=== PATIENT | female | born 1995 | race Caucasian/White ===

== ENCOUNTER 2017-12-25 11:12 | Emergency (ER) | payer SELFPAY ==
[~2017-12-25] VITALS: Ht 160 cm; Wt 54.4 kg
--- OUTSIDE RECORDS SUMMARY | 2017-12-25 11:28 | XMS REPORT | Continuity of Care Document ---
Demographics Preferred Language Unknown Marital Status Unknown Hinduism Affiliation Unknown Race Unknown Ethnic Group Unknown Author Author [facility] Address Unknown Phone Unavailable Allergies There is no data. Medications There is no data. Problems Date Dx Coded Attending Type Code Diagnosis Diagnosed By 12/07/2011 463 TONSILLITIS ACUTE 12/07/2011 466.0 BRONCHITIS, ACUTE Procedures There is no data. Results There is no data. Encounters ACCT No. Visit Date/Time Discharge Status Pt. Type Provider Facility Loc./Unit Complaint [id number] 08/19/2012 07:46:00 Document Registration
--- NOTE | 2017-12-25 12:00 | ED GU-Female ---
General Chief Complaint: Abdominal/GI Problems Stated Complaint: OVARIAN MASS/CRAMPS Nursing Triage Note: pt presents to ed with complaints of l lower abdominal pain the radiates to r side. pt reports she was seen in [place] ED three days ago for "ovarian mass" but told to just take tylenol and follow up with her primary dr. Nursing Sepsis Screen: No Definite Risk Source: patient Exam Limitations: no limitations History of Present Illness Date Seen by Provider: December 25, 2017 Time Seen by Provider: 11:59 Initial Comments 22 yo female patient presents to the emergency department with complaints of left lower abdominal pain radiating to the right side for approximately one week. Patient was seen at the emergency department in [place] 3 days ago and found to have a "ovarian mass". Reports having labs, 2 CT's, pelvic exam, and pelvic cultures. She was told that she has a yeast infection. Patient states she did have an ultrasound of the abdomen and transvaginal ultrasound 2 days ago as an outpatient at , but does not know her results. Reports pain is worse today. Timing/Duration: getting worse Severity/Quality: cramping Location: LLQ Radiation: RLQ, suprapubic Activities at Onset: none Prior Genitourinary Problems: similar symptoms Sexual Moraida History: less than 2 months ago, single partner Modifying Factors: Worsens With Palpation, Worsens With Other (worse with standing) Allergies and Home Medications Allergies Coded Allergies: latex (Verified Allergy, Unknown, 11/07/12) Home Medications Naproxen Sodium 550 Mg Tablet, 550 MG PO BID PRN for pain Prescribed by: ONESIMO MILES on 12/25/17 1411 Patient Home Medication List Home Medication List Reviewed: Yes Review of Systems Constitutional: No chills, No fever, No malaise EENTM: no symptoms reported Respiratory: no symptoms reported Cardiovascular: no symptoms reported Gastrointestinal: see HPI, abdominal pain; No constipation, No diarrhea, No hematemesis; loss of appetite; No melena; nausea; No vomiting (did have 1 episode of emesis a couple of days ago, but none today.) Genitourinary: see HPI; denies burning; discharge (white discharge); denies dysuria, denies frequency, denies flank pain, denies hematuria; pain Musculoskeletal: No back pain Skin: no symptoms reported Psychiatric/Neurological: No Symptoms Reported All Other Systemes Reviewed Negative Unless Noted: Yes (Negative excepted noted.) Past Tjlnxgv-Hdxgeb-Cwuxvp Hx Patient Social History Alcohol Use: Denies Use Recreational Drug Use: No Smoking Status: Current Everyday Smoker Type Used: Cigarettes Recent Foreign Travel: No Contact w/Someone Who Travel: No Recent Infectious Disease Expo: No Physical Abuse: No Sexual Abuse: No Mistreated: No Fear: No Past Medical History Surgeries: No Respiratory: No Cardiac: No Neurological: No : No Hx : 1 Hx Para: 1 Hx Total # of Abortions (Sp): 0 Reproductive Disorders: Yes (h/o ovarian cysts) Female Reproductive Disorders: Ovarian Cyst Sexually Transmitted Disease: No Genitourinary: No Gastrointestinal: No Musculoskeletal: No Endocrine: No HEENT: No Cancer: No Psychosocial: No Nursing Suicide Risk Score: 0 Integumentary: No Blood Disorders: No Adverse Reaction/Blood Tranf: No Family Medical History Reviewed and Corrections made No Pertinent Family Hx Physical Exam Vital Signs Vital Signs - First Documented 12/25/17 11:32 Temp 98.2 Pulse 77 Resp 20 B/P (MAP) 104/76 (85) Pulse Ox 98 Capillary Refill : Less Than 3 Seconds General Appearance: WD/WN, no apparent distress, thin Neck: supple, normal inspection Cardiovascular: normal peripheral pulses, regular rate, rhythm, no edema, no murmur Respiratory: lungs clear, normal breath sounds, no respiratory distress, no accessory muscle use Gastrointestinal: normal bowel sounds, soft, no organomegaly; No distended; guarding (mild guarding LLQ); No rebound; tenderness (bilateral lower abdominal tenderness.) Back: normal inspection, no CVA tenderness Extremities: no pedal edema, normal capillary refill Neurologic/Psychiatric: alert, normal mood/affect, oriented x 3 Skin: normal color, warm/dry Progress/Results/Core Measures Suspected Sepsis Recent Fever Within 48 Hours: No Infection Criteria Present: None New/Unexplained Altered Menta: No Sepsis Screen: No Definite Risk SIRS Temperature:98.2 Pulse: 77 Respiratory Rate: 20 Laboratory Tests 12/25/17 12:30: White Blood Count 9.5 Blood Pressure 104 /76 Mean: 85 Laboratory Tests 12/25/17 12:30: Creatinine 0.77, Platelet Count 232, Total Bilirubin 0.4 Results/Orders Lab Results Laboratory Tests Test 12/25/17 12:25 12/25/17 12:30 Range/Units Urine Color YELLOW Urine Clarity CLEAR Urine pH 7 5-9 Urine Specific [place] 1.010 L 1.016-1.022 Urine Protein NEGATIVE NEGATIVE Urine Glucose (UA) NEGATIVE NEGATIVE Urine Ketones NEGATIVE NEGATIVE Urine Nitrite NEGATIVE NEGATIVE Urine Bilirubin NEGATIVE NEGATIVE Urine Urobilinogen NORMAL NORMAL MG/DL Urine Leukocyte Esterase 1+ H NEGATIVE Urine RBC (Auto) NEGATIVE NEGATIVE Urine RBC NONE /HPF Urine WBC 0-2 /HPF Urine Squamous Epithelial Cells 5-10 /HPF Urine Crystals NONE /LPF Urine Bacteria FEW H /HPF Urine Casts NONE /LPF Urine Mucus NEGATIVE /LPF Urine Culture Indicated NO Urine Opiates Screen NEGATIVE NEGATIVE Urine Oxycodone Screen NEGATIVE NEGATIVE Urine Methadone Screen NEGATIVE NEGATIVE Urine Propoxyphene Screen NEGATIVE NEGATIVE Urine Barbiturates Screen NEGATIVE NEGATIVE Ur Tricyclic Antidepressants Screen NEGATIVE NEGATIVE Urine Phencyclidine Screen NEGATIVE NEGATIVE Urine Amphetamines Screen NEGATIVE NEGATIVE Urine Methamphetamines Screen NEGATIVE NEGATIVE Urine Benzodiazepines Screen NEGATIVE NEGATIVE Urine Cocaine Screen NEGATIVE NEGATIVE Urine Cannabinoids Screen POSITIVE H NEGATIVE White Blood Count 9.5 4.3-11.0 10^3/uL Red Blood Count 4.90 4.35-5.85 10^6/uL Hemoglobin 14.9 11.5-16.0 G/DL Hematocrit 43 35-52 % Mean Corpuscular Volume 87 80-99 FL Mean Corpuscular Hemoglobin 30 25-34 PG Mean Corpuscular Hemoglobin Concent 35 32-36 G/DL Red Cell Distribution Width 14.9 H 10.0-14.5 % Platelet Count 232 130-400 10^3/uL Mean Platelet Volume 10.3 7.4-10.4 FL Neutrophils (%) (Auto) 64 42-75 % Lymphocytes (%) (Auto) 27 12-44 % Monocytes (%) (Auto) 7 0-12 % Eosinophils (%) (Auto) 1 0-10 % Basophils (%) (Auto) 1 0-10 % Neutrophils # (Auto) 6.1 1.8-7.8 X 10^3 Lymphocytes # (Auto) 2.6 1.0-4.0 X 10^3 Monocytes # (Auto) 0.7 0.0-1.0 X 10^3 Eosinophils # (Auto) 0.1 0.0-0.3 10^3/uL Basophils # (Auto) 0.1 0.0-0.1 10^3/uL Sodium Level 139 135-145 MMOL/L Potassium Level 4.1 3.6-5.0 MMOL/L Chloride Level 111 H 98-107 MMOL/L Carbon Dioxide Level 21 21-32 MMOL/L Anion Gap 7 5-14 MMOL/L Blood Urea Nitrogen 10 7-18 MG/DL Creatinine 0.77 0.60-1.30 MG/DL Estimat Glomerular Filtration Rate > 60 BUN/Creatinine Ratio 13 Glucose Level 82 70-105 MG/DL Calcium Level 9.3 8.5-10.1 MG/DL Total Bilirubin 0.4 0.1-1.0 MG/DL Aspartate Amino Transf (AST/SGOT) 19 5-34 U/L Alanine Aminotransferase (ALT/SGPT) 11 0-55 U/L Alkaline Phosphatase 60 40-136 U/L C-Reactive Protein High Sensitivity 0.13 0.00-0.50 MG/DL Total Protein 8.0 6.4-8.2 GM/DL Albumin 4.6 H 3.2-4.5 GM/DL My Orders Orders - ONESIMO MILES Saline Lock/Iv-Start (12/25/17 12:17) Urine Bedside (12/25/17 12:17) Cbc With Automated Diff (12/25/17 12:17) Comprehensive Metabolic Panel (12/25/17 12:17) Hs C Reactive Protein (12/25/17 12:17) Drug Screen Stat (Urine) (12/25/17 12:17) Ua Culture If Indicated (12/25/17 12:17) Ondansetron Injection (Zofran Injectio (12/25/17 12:30) Ns Iv 1000 Ml (Sodium Chloride 0.9%) (12/25/17 12:17) Ketorolac Injection (Toradol Injection) (12/25/17 12:17) Us Non Ob Transvaginal [id number] (12/25/17 12:58) Medications Given in ED Current Medications Medications Dose Ordered Sig/Adriana Route Start Time Stop Time Status Last Admin Dose Admin Ondansetron HCl 4 mg ONCE ONCE IVP 12/25/17 12:30 12/25/17 12:31 DC 12/25/17 12:30 4 MG Sodium Chloride 1,000 ml @ 0 mls/hr Q0M ONCE IV 12/25/17 12:17 12/25/17 12:19 DC 12/25/17 12:31 0 MLS/HR Vital Signs/I&O 12/25/17 14:19 Pulse 64 Resp 18 B/P (MAP) 105/68 Pulse Ox 98 Capillary Refill : Less Than 3 Seconds Blood Pressure Mean: 85 Diagnostic Imaging Diagonstic Imaging: Ultrasound Plain Films/CT/US/NM/MRI: pelvis Comments US NON OB TRANSVAGINAL [id number] REASON FOR EXAM: Left pelvic pain. COMPARISON: None TECHNIQUE: Transvaginal sonogram was performed. FINDINGS: The uterus is anteverted and within normal limits in size. There are no focal uterine masses. The endometrial stripe measures 10 mm, with a small amount of endometrial fluid present. The cervix is visualized and is unremarkable. The left ovary measures 4.3 x 4.2 x 3.5 cm in size and demonstrates a cystic structure which measures 2.6 x 2.7 x 2.1 cm, with internal septations, which may represent a hemorrhagic cyst. The right ovary is not seen due to bowel gas. No significant free fluid is seen. IMPRESSION: 1. Normal appearance of uterus with minimal endometrial fluid. 2. Cystic structure on the left ovary measuring up to 2.7 cm in size, likely a hemorrhagic cyst. Dictated by: Dictated on workstation # [id number] Reviewed: Reviewed by Me (radiology report reviewed by me) Departure Communication (Admissions) 1222 release of medical info faxed to [facility]. ED staff notified. 1315 [facility] ED contacted. States "there is something on the fax machine. They will fax records as soon as possible. 1350 [facility] ED records received and reviewed. Patient was diagnosed with bacterial vaginosis, candidiasis vulvovaginitis and a left ovarian mass per records. 1400 all laboratory findings and diagnostic study findings discussed with the patient. Patient reports feeling better with medications given. We'll plan for discharge to home with follow-up as an outpatient with Dr. Vazquez and/or the registered nurse step down of her choice for recheck. Patient to return to the emergency department immediately for worsened symptoms or any other concerns. Impression Primary Impression: Hemorrhagic cyst of left ovary Additional Impressions: BV (bacterial vaginosis) Vulvovaginal candidiasis Disposition: 01 HOME, SELF-CARE Condition: Improved Departure-Patient Inst. Decision time for Depature: 14:08 Referrals: KWESI VAZQUEZ MD (PCP/Family) Primary Care Physician Patient Instructions: Ovarian Cyst (DC) Add. Discharge Instructions: All discharge instructions reviewed with patient and/or family. Voiced understanding. Medications as instructed. Continue the medications prescribed by the [facility] providers. [id number] Monistat as directed by the parking lot manager for the yeast infection. Follow-up with Dr. Roy or the registered nurse step down of your choice for recheck as an outpatient. They may repeat an outpatient ultrasound in 6-12 weeks to reevaluate the left ovary. Call Wednesday morning for an appointment time. Return to the emergency department for worsened pain, fever, vomiting, inability to urinate, or any other concerns. Scripts Naproxen Sodium (Anaprox Ds) 550 Mg Tablet 550 MG PO BID PRN for pain, #14 TAB 0 Refills Prov: ONESIMO MILES 12/25/17 Work/School Note: Local Medical Staff Listing, Work Release Form Date Seen in the Emergency Department: December 25, 2017 Return to Work: December 26, 2017 Restrictions: No Restrictions ONESIMO MILES December 25, 2017 12:00
[2017-12-25] MEDS ORDERED: NS IV 1000 ML 1,000 ML IV ONE (12:17)
[2017-12-25] MEDS ORDERED: KETOROLAC 30 MG/ML VIAL IVP STA (12:17)
[2017-12-25] MEDS ORDERED: ONDANSETRON 4 MG/2 ML (SDV) Z0FRAN IVP ONE (12:30)
[2017-12-25 12:36] LABS: BASOPHILS # (AUTO) 0.1 10^3/uL (0.0-0.1); BASOPHILS % (AUTO) 1 % (0-10); EOSINOPHILS # (AUTO) 0.1 10^3/uL (0.0-0.3); EOSINOPHILS % (AUTO) 1 % (0-10); HEMATOCRIT 43 % (35-52); HEMOGLOBIN 14.9 G/DL (11.5-16.0); LYMPHOCYTES # (AUTO) 2.6 X 10^3 (1.0-4.0); LYMPHOCYTES % (AUTO) 27 % (12-44); MEAN CORPUSCULAR HEMOGLOBIN 30 PG (25-34); MEAN CORPUSCULAR HGB CONC 35 G/DL (32-36); MEAN CORPUSCULAR VOLUME 87 FL (80-99); MEAN PLATELET VOLUME 10.3 FL (7.4-10.4); MONOCYTES # (AUTO) 0.7 X 10^3 (0.0-1.0); MONOCYTES % (AUTO) 7 % (0-12); NEUTROPHILS # (AUTO) 6.1 X 10^3 (1.8-7.8); NEUTROPHILS % (AUTO) 64 % (42-75); PLATELET COUNT 232 10^3/uL (130-400); RED CELL DISTRIBUTION WIDTH 14.9 % (10.0-14.5); WHITE BLOOD COUNT 9.5 10^3/uL (4.3-11.0)
[2017-12-25 12:36] LABS: BILIRUBIN,URINE NEGATIVE (NEGATIVE); CLARITY,URINE CLEAR; COLOR,URINE YELLOW; GLUCOSE, URINE (UA) NEGATIVE (NEGATIVE); KETONES,URINE NEGATIVE (NEGATIVE); LEUKOCYTE ESTERASE ,URINE 1+ (NEGATIVE); NITRITE,URINE NEGATIVE (NEGATIVE); PH,URINE 7 (5-9); PROTEIN,URINE NEGATIVE (NEGATIVE); UROBILINOGEN,URINE NORMAL (NORMAL)
[2017-12-25 12:45] LABS: BACTERIA,URINE FEW /HPF; WBC,URINE 0-2 /HPF
[2017-12-25 12:53] LABS: ALANINE AMINOTRANSFERASE 11 U/L (0-55); ALBUMIN 4.6 GM/DL (3.2-4.5); ALKALINE PHOSPHATASE 60 U/L (40-136); BILIRUBIN,TOTAL 0.4 MG/DL (0.1-1.0); BUN/CREATININE RATIO 13; CALCIUM 9.3 MG/DL (8.5-10.1); CARBON DIOXIDE 21 MMOL/L (21-32); CHLORIDE 111 MMOL/L (98-107); CREATININE SERUM 0.77 MG/DL (0.60-1.30); GFR ESTIMATED > 60; GLUCOSE 82 MG/DL (70-105); POTASSIUM 4.1 MMOL/L (3.6-5.0); SODIUM 139 MMOL/L (135-145)
[2017-12-25 12:54] LABS: AMPHETAMINE SCREEN, URINE NEGATIVE (NEGATIVE); BARBITURATE SCREEN URINE NEGATIVE (NEGATIVE); BENZODIAZEPINES SCREEN URINE NEGATIVE (NEGATIVE); CANNABINOID SCREEN, URINE POSITIVE (NEGATIVE); COCAINE SCREEN URINE NEGATIVE (NEGATIVE); METHADONE STAT NEGATIVE (NEGATIVE); METHAMPHETAMINE SCREEN URINE S NEGATIVE (NEGATIVE); OPIATE SCREEN URINE NEGATIVE (NEGATIVE); OXYCODONE STAT NEGATIVE (NEGATIVE); PROPOXYPHENE STAT NEGATIVE (NEGATIVE); TRICYCLIC ANTIDEPRESSANTS SCRE NEGATIVE (NEGATIVE)
--- NOTE | 2017-12-25 13:41 | Diagnostic Imaging Report ---
REASON FOR EXAM: Left pelvic pain. COMPARISON: None TECHNIQUE: Transvaginal sonogram was performed. FINDINGS: The uterus is anteverted and within normal limits in size. There are no focal uterine masses. The endometrial stripe measures 10 mm, with a small amount of endometrial fluid present. The cervix is visualized and is unremarkable. The left ovary measures 4.3 x 4.2 x 3.5 cm in size and demonstrates a cystic structure which measures 2.6 x 2.7 x 2.1 cm, with internal septations, which may represent a hemorrhagic cyst. The right ovary is not seen due to bowel gas. No significant free fluid is seen. IMPRESSION: 1. Normal appearance of uterus with minimal endometrial fluid. 2. Cystic structure on the left ovary measuring up to 2.7 cm in size, likely a hemorrhagic cyst. Dictated by: Dictated on workstation # [id number]
[2017-12-25] MEDS ORDERED: NAPR-1070 PO (14:11)
[2017-12-25 14:19] VITALS: BP 105/68
== END 2017-12-25 14:19 | disposition home or self-care (01) ==
LOC: EDUNIT# 11:12 → ER 11:14
DX: N83.202 Unspecified ovarian cyst, left side (principal); N76.0 Acute vaginitis; B96.89 Other specified bacterial agents as the cause of diseases classified elsewhere; B37.3 Candidiasis of vulva and vagina; F17.210 Nicotine dependence, cigarettes, uncomplicated; Z87.448 Personal history of other diseases of urinary system; Z91.040 Latex allergy status
CPT/HCPCS: 36415; 76830; 80053; 80306; 81000; 84703; 85025; 86141; 96361; 96374; 96375

== ENCOUNTER 2018-03-08 11:18 | Emergency (ER) | payer SELFPAY ==
[~2018-03-08] VITALS: Ht 160 cm; Wt 49.9 kg
[~2018-03-08 11:18] MED LIST: NAPR-1070 PO
--- OUTSIDE RECORDS SUMMARY | 2018-03-08 11:24 | XMS REPORT | Continuity of Care Document ---
Demographics Preferred Language Unknown Marital Status Unknown Scientologist Affiliation Unknown Race Unknown Ethnic Group Unknown Author Author [facility] Address Unknown Phone Unavailable Allergies There is no data. Medications There is no data. Problems Date Dx Coded Attending Type Code Diagnosis Diagnosed By 12/07/2011 463 TONSILLITIS ACUTE 12/07/2011 466.0 BRONCHITIS, ACUTE Procedures There is no data. Results There is no data. Encounters ACCT No. Visit Date/Time Discharge Status Pt. Type Provider Facility Loc./Unit Complaint [id number] 08/19/2012 07:46:00 Document Registration
--- NOTE | 2018-03-08 11:43 | ED Upper Extremity ---
General Chief Complaint: Upper Extremity Stated Complaint: RT ARM INJ Source: patient Exam Limitations: no limitations History of Present Illness Date Seen by Provider: Mar 08, 2018 Time Seen by Provider: 11:38 Initial Comments Patient is a 22-year-old female who presents to the emergency room with right hand pain and swelling. She reports that on February 26, 2018 she punched a wall and presented to [place] emergency room where they diagnosed her with a right hand boxer's fracture. She reports they told her to follow-up with orthopedic surgeon of her choosing but she says she has not done that. She states that they gave her tramadol that is causing her breakout rashes she has not been taking it. Onset: other (February 26.) Pain/Injury Location: right wrist, right hand Method of Injury: other (punched a wall) Modifying Factors: Improves With Immobilization; Worse With Movement Allergies and Home Medications Allergies Coded Allergies: latex (Verified Allergy, Unknown, 11/07/12) Patient Home Medication List Home Medication List Reviewed: Yes Constitutional: see HPI; No chills, No diaphoresis EENTM: see HPI; No blurred vision, No double vision, No eye pain, No tearing Respiratory: see HPI; No cough, No dyspnea on exertion, No short of breath, No wheezing Cardiovascular: see HPI; No chest pain, No edema, No Hx of Intervention Gastrointestinal: see HPI; No abdominal pain, No constipation, No diarrhea Genitourinary: see HPI; No decreased output, No discharge, No dysuria Musculoskeletal: see HPI, joint pain (right wrist) Skin: see HPI, change in color; No change in hair/nails, No dryness Psychiatric/Neurological: See HPI; Denies Anxiety, Denies Depressed, Denies Emotional Problems All Other Systems Reviewed Negative Unless Noted: Yes Past Dwzqwxp-Kxrunt-Azdamq Hx Past Med/Social Hx: Reviewed Nursing Past Med/Soc Hx Patient Social History Alcohol Use: Denies Use Recreational Drug Use: No Smoking Status: Current Everyday Smoker Type Used: Cigarettes Recent Foreign Travel: No Contact w/Someone Who Travel: No Past Medical History Surgeries: No Respiratory: No Cardiac: No Neurological: No Reproductive Disorders: Yes (h/o ovarian cysts) Female Reproductive Disorders: Ovarian Cyst Sexually Transmitted Disease: No Genitourinary: No Gastrointestinal: No Musculoskeletal: No Endocrine: No HEENT: No Cancer: No Psychosocial: No Integumentary: No Blood Disorders: No Adverse Reaction/Blood Tranf: No Family Medical History Reviewed Nursing Family Hx No Pertinent Family Hx Physical Exam Vital Signs Vital Signs - First Documented 03/08/18 11:23 Temp 98.0 Pulse 62 Resp 18 B/P (MAP) 105/83 (90) Pulse Ox 98 O2 Delivery Room Air Capillary Refill : Height, Weight, BMI Height: 5'3.00" Weight: 120lbs. oz. 54.999320an; BMI Method:Stated General Appearance: WD/WN, no apparent distress HEENT: PERRL/EOMI, normal ENT inspection, TMs normal, pharynx normal Neck: non-tender, full range of motion, supple, normal inspection Cardiovascular: regular rate, rhythm, no edema, no gallop, no JVD, no murmur Respiratory: chest non-tender, lungs clear, normal breath sounds, no respiratory distress, no accessory muscle use Gastrointestinal: normal bowel sounds, non tender, soft, no organomegaly, no pulsatile mass Back: normal inspection, no CVA tenderness, no vertebral tenderness Shoulder: normal inspection, non-tender, no evidence of injury, normal ROM Elbow/Forearm: normal inspection, non-tender, no evidence of injury, normal ROM , Bilateral Wrist: Yes ecchymosis, Yes pain, Yes soft tissue tenderness Hand: Right, ecchymosis, soft tissue tenderness Neurologic/Tendon: normal sensation, normal motor functions, normal tendon functions, responds to pain Neurologic/Psychiatric: alert, normal mood/affect, oriented x 3 Skin: warm/dry, ecchymosis (right hand) Lymphatic: no adenopathy Progress/Results/Core Measures Results/Orders My Orders Orders - YARED ANTHONY Hydrocodone/Apap 5/325 Tablet (Lortab 5 (03/08/18 11:45) Hand, Right, 3 Views (03/08/18 11:34) Medications Given in ED Current Medications Medications Dose Ordered Sig/Adriana Route Start Time Stop Time Status Last Admin Dose Admin Acetaminophen/ Hydrocodone Bitart 1 tab ONCE ONCE PO 03/08/18 11:45 03/08/18 11:46 DC 03/08/18 11:43 1 TAB Vital Signs/I&O 03/08/18 11:23 Temp 98.0 Pulse 62 Resp 18 B/P (MAP) 105/83 (90) Pulse Ox 98 O2 Delivery Room Air Progress Progress Note : Time: 12:28 Progress Note The patient was concerned with infection from the digital block that they did a forced cut emergency room. I removed the splint to examine the hand there is slight ecchymosis on the hand. There is no drainage noted on the splint, there is no redness, erythema, or swelling on the hand. I put a new splint on the patient's hand a short arm with the fingers a 90 angle. I called before states and they said go ahead and refer the patient to Dr. Cassandra rocha. I have called his office twice trying to set up an appointment. I left all the patient's information on the voicemail with her phone number to be called with an appointment time. I also provided information to the patient for Dr. Colón's office so she can call and follow-up. Departure Impression Primary Impression: Fracture of hand Disposition: 01 HOME, SELF-CARE Condition: Stable/Unchanged Departure-Patient Inst. Decision time for Depature: 13:16 Referrals: KWESI VAZQUEZ MD (PCP) Primary Care Physician KERRI MCCORMICK DO Patient Instructions: Hand Fracture (DC) Add. Discharge Instructions: Call Dr. Jaimes's office for appointment time. I called and left a message with your information and your phone number so hopefully they will return the phone call shortly. Take medications as directed. Return back to the emergency room for any concerns as needed. Wear the splint at all times. You may use ice at 20 minute intervals as needed. All discharge instructions reviewed with patient and/or family. Voiced understanding. Scripts Hydrocodone Bit/Acetaminophen (Hydrocodone/Acetaminophen 5/325mg Tablet) 1 Tab Tab 1 EACH PO Q6H PRN for PAIN, #14 TAB Prov: YARED ANTHONY 03/08/18 YARED ANTHONY Mar 08, 2018 11:43
[2018-03-08] MEDS ORDERED: HYDROcodone/APAP 5 MG/325 MG (LORTAB) TAB PO ONE (11:45)
--- NOTE | 2018-03-08 12:19 | Diagnostic Imaging Report ---
Indication: Injury. Hit a wall. Comparison: None Findings: Three views of the right hand are obtained. There is an angulated nondisplaced fracture distal fifth metacarpal with moderate volar angulation of the the distal fracture fragment. No additional fracture, malalignment or osseous destructive process is seen. Impression: Angulated distal fifth metacarpal fracture. Called to ER doctor At 12:17 p.m. by jose. Dictated by: Dictated on workstation # [id number]
[2018-03-08] MEDS ORDERED: ACHD5005 PO (13:18)
[2018-03-08 13:27] VITALS: BP 105/83
== END 2018-03-08 13:27 | disposition home or self-care (01) ==
LOC: EDUNIT# 11:18 → ER 11:21
DX: S62.396A Other fracture of fifth metacarpal bone, right hand, initial encounter for closed fracture (principal); F17.210 Nicotine dependence, cigarettes, uncomplicated; Z91.040 Latex allergy status; W22.01XA Walked into wall, initial encounter
CPT/HCPCS: 29125; 73130